=== PATIENT | female | born 1930 | race Caucasian/White ===

== ENCOUNTER 2020-01-24 15:23 | Emergency (ER) | payer MEDICARE, BC ==
--- NOTE | 2020-01-24 16:11 | EDM.PDOC ---
ED HPI GENERAL MEDICAL PROBLEM - General Chief Complaint: General Stated Complaint: MEDICAL VIA TRI Time Seen by Provider: 01/24/20 15:50 Source of Information: Reports: Patient, EMS, Old Records, RN History Limitations: Reports: No Limitations - History of Present Illness INITIAL COMMENTS - FREE TEXT/NARRATIVE: 89 yo female here via EMS from her home with a couple day hx of difficulty with speech and some bilateral mild arm weakness. Reports mild L leg numbness. Has has these sx's in the past and they have improved with time. This time they are not improving so she called the clinic and tried to get an appt. She was told to call and ambulance which she did. She expected to be taken to Dr. Harp's office and when she arrived at the hospital thought he would be meeting her here. Her children were with her yesterday and noted her problems, but no one chose to do anything at the time. Has not missed any of her medications. Is not having any trouble with swallowing. Had a CTA of her head last year that showed many aneurysms and arterial stenoses. 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) - Related Data Allergies Allergy/AdvReac Type Severity Reaction Status Date / Time codeine Allergy Unknown Shortness Verified 02/25/18 13:27 of Breath adenosine [From Adenocard] Allergy Shortness Verified 02/25/18 13:27 of Breath Home Meds: Home Meds Albuterol [Proair HFA] 2 puff INH QID 01/21/16 [History] Aspirin [Ecotrin EC] 81 mg PO DAILY 01/21/16 [History] Fluticasone/Salmeterol [Advair Diskus 500-50] 1 puff INH BID 01/21/16 [History] Lactobacillus Acidophilus [Acidophilus Lactobacillus] 1 tab PO DAILY 02/12/16 [ History] Magnesium Oxide 500 mg PO DAILY 02/12/16 [History] Metoprolol Tartrate [Lopressor] 25 mg PO BID 02/12/16 [History] Clopidogrel Bisulfate [Clopidogrel] 75 mg PO DAILY 01/24/20 [History] Naproxen 500 mg PO BID 01/24/20 [History] Potassium Chloride 10 meq PO BID 01/24/20 [History] Triamterene/Hydrochlorothiazid [Triamterene-HCTZ 37.5-25 MG] 1 tab PO DAILY [History] atorvaSTATin [Lipitor] 40 mg PO DAILY 01/24/20 [History] Past Medical History HEENT History: Reports: Impaired Vision Cardiovascular History: Reports: Hypertension Respiratory History: Reports: Bronchitis, Recurrent, COPD Gastrointestinal History: Reports: Chronic Constipation 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: Musculoskeletal History: Reports: Arthritis, Back Pain, Chronic, Osteoporosis Hematologic History: Reports: Other (See Below) Other Hematologic History: abnormal white count - Infectious Disease History Infectious Disease History: Reports: Chicken Pox, Measles, Mumps - Past Surgical History Cardiovascular Surgical History: Reports: None Musculoskeletal Surgical History: Reports: Other (See Below) Social & Family History - Tobacco Use Smoking Status *Q: Never Smoker - Living Situation & Occupation Living situation: Reports: Alone ED ROS GENERAL - Review of Systems Review Of Systems: See Below Constitutional: Reports: No Symptoms HEENT: Reports: Hearing Loss (chronic) Respiratory: Reports: No Symptoms Cardiovascular: Reports: No Symptoms GI/Abdominal: Reports: No Symptoms : Reports: No Symptoms Musculoskeletal: Reports: No Symptoms Skin: Reports: No Symptoms Neurological: Reports: Trouble Speaking, Weakness (mild bilateral arm weakness) , Change in Speech ED EXAM, GENERAL - Physical Exam Exam: See Below Exam Limited By: No Limitations General Appearance: Alert, WD/WN, No Apparent Distress Eye Exam: Bilateral Eye: Other (not able to look up) Ears: Hearing Loss, Other (bilateral hearing aids) Ear Exam: Bilateral Ear: Auricle Normal Nose: Normal Inspection, No Blood Throat/Mouth: Normal Inspection, Normal Oropharynx, Normal Voice, No Airway Compromise Head: Atraumatic, Normocephalic Neck: Normal Inspection, Supple, Non-Tender Respiratory/Chest: No Respiratory Distress, Lungs Clear, Normal Breath Sounds, No Accessory Muscle Use Cardiovascular: Regular Rate, Rhythm, No Edema GI/Abdominal: Normal Bowel Sounds, Soft, Non-Tender, No Distention Back Exam: Normal Inspection. No: CVA Tenderness (R), CVA Tenderness (L) Extremities: Normal Inspection, Normal Range of Motion, Non-Tender, No Pedal Edema Neurological: Alert, Oriented, No Motor/Sensory Deficits, Other (seems to not be able to look up. Has reduced visual traore in all directions. ). No: Slow to Respond, Sensory/Motor Deficit Psychiatric: Normal Affect, Normal Mood Skin Exam: Warm, Dry, Intact, Normal Color, No Rash Course - Vital Signs Text/Narrative:: Discussed options for management with patient. She is not interested in speech therapy. Case discussed with Dr. Figueredo, feels not a candidate for aggressive tx with the duration of her sx's. Patient prefers to go home and follow up with her primary. Last Recorded V/S: Last Vital Signs Temp 35.9 C L 01/24/20 16:38 Pulse 80 01/24/20 16:38 Resp 16 01/24/20 16:38 BP 206/79 H 01/24/20 16:46 Pulse Ox 97 01/24/20 16:38 - Orders/Labs/Meds Orders: Active Orders 24 hr Category Date Time Status CULTURE BLOOD [BC] Stat Lab 01/24/20 17:11 Received Saline Lock Insert [OM.PC] Routine Oth 01/24/20 16:41 Ordered Labs: Laboratory Tests 01/24/20 01/24/20 01/24/20 Range/Units 16:20 16:22 16:22 WBC 24.2 H Cancelled (4.5-11.0) K/uL RBC 3.84 Cancelled (3.30-5.50) M/uL Hgb 12.7 Cancelled (12.0-15.0) g/dL Hct 39.0 Cancelled (36.0-48.0) % MCV 102 H Cancelled (80-98) fL MCH 33 H Cancelled (27-31) pg MCHC 33 Cancelled (32-36) % Plt Count 193 Cancelled (150-400) K/uL Neut % (Auto) 22 L (36-66) % Lymph % (Auto) 72 H (24-44) % [place] % (Auto) 4 (2-6) % Eos % (Auto) 1 L (2-4) % Baso % (Auto) 0 (0-1) % Sodium 143 (140-148) mmol/L Potassium 4.1 (3.6-5.2) mmol/L Chloride 106 (100-108) mmol/L Carbon Dioxide 31 (21-32) mmol/L Anion Gap 6.2 (5.0-14.0) mmol/L BUN 33 H D (7-18) mg/dL Creatinine 1.2 H (0.6-1.0) mg/dL Est Cr Clr Drug Dosing 25.52 mL/min Estimated GFR (MDRD) 42 L (>60) Glucose 122 H (74-106) mg/dL Calcium 9.1 (8.5-10.1) mg/dL Troponin I 0.027 (0.000-0.056) ng/mL Urine Color (YELLOW) Urine Appearance (CLEAR) Urine pH (5.0-8.0) Ur Specific [place] (1.008-1.030) Urine Protein (NEGATIVE) mg/dL Urine Glucose (UA) (NEGATIVE) mg/dL Urine Ketones (NEGATIVE) mg/dL Urine Occult Blood (NEGATIVE) Urine Nitrite (NEGATIVE) Urine Bilirubin (NEGATIVE) Urine Urobilinogen (0.2-1.0) EU/dL Ur Leukocyte Esterase (NEGATIVE) Urine RBC (0-5) Urine WBC (0-5) Ur Epithelial Cells Amorphous Sediment Urine Bacteria Urine Mucus 01/24/20 Range/Units 16:37 WBC (4.5-11.0) K/uL RBC (3.30-5.50) M/uL Hgb (12.0-15.0) g/dL Hct (36.0-48.0) % MCV (80-98) fL MCH (27-31) pg MCHC (32-36) % Plt Count (150-400) K/uL Neut % (Auto) (36-66) % Lymph % (Auto) (24-44) % [place] % (Auto) (2-6) % Eos % (Auto) (2-4) % Baso % (Auto) (0-1) % Sodium (140-148) mmol/L Potassium (3.6-5.2) mmol/L Chloride (100-108) mmol/L Carbon Dioxide (21-32) mmol/L Anion Gap (5.0-14.0) mmol/L BUN (7-18) mg/dL Creatinine (0.6-1.0) mg/dL Est Cr Clr Drug Dosing mL/min Estimated GFR (MDRD) (>60) Glucose (74-106) mg/dL Calcium (8.5-10.1) mg/dL Troponin I (0.000-0.056) ng/mL Urine Color Yellow (YELLOW) Urine Appearance Clear (CLEAR) Urine pH 7.5 (5.0-8.0) Ur Specific [place] 1.025 (1.008-1.030) Urine Protein Negative (NEGATIVE) mg/dL Urine Glucose (UA) Negative (NEGATIVE) mg/dL Urine Ketones Negative (NEGATIVE) mg/dL Urine Occult Blood Negative (NEGATIVE) Urine Nitrite Negative (NEGATIVE) Urine Bilirubin Negative (NEGATIVE) Urine Urobilinogen 0.2 (0.2-1.0) EU/dL Ur Leukocyte Esterase Negative (NEGATIVE) Urine RBC 0-5 (0-5) Urine WBC 0-5 (0-5) Ur Epithelial Cells Not seen Amorphous Sediment Not seen Urine Bacteria Rare Urine Mucus Not seen Meds: Medications Discontinued Medications Generic Name Dose Route Start Last Admin Trade Name Freq PRN Reason Stop Dose Admin Lactated Ringer's 1,000 mls @ 150 mls/hr 01/24/20 17:15 01/24/20 17:26 Ringers, Lactated IV 150 mls/hr ASDIRECTED SWAPNIL Administration Sodium Chloride 10 ml 01/24/20 16:41 01/24/20 17:37 Saline Flush FLUSH 10 ml ASDIRECTED PRN Administration Keep Vein Open - Radiology Interpretation Free Text/Narrative:: Head CT without contrast-IMPRESSION: 1. No radiographic evidence of acute intracranial abnormalities. 2. Mild cerebral atrophy. 3. Mild to moderate supratentorial white matter changes that are non-specific, but statistically most likely related to small vessel ischemic disease. CT Results Date: 01/24/20 CT Results Time: 17:15 Departure - Departure Time of Disposition: 19:20 Disposition: Home, Self-Care 01 Condition: Fair Clinical Impression: Dysarthria, CLL (chronic lymphocytic leukemia), Mild dehydration CVA (cerebral vascular accident) Qualifiers: CVA mechanism: unspecified Qualified Code(s): I63.9 - Cerebral infarction, unspecified HTN (hypertension) Qualifiers: Hypertension type: unspecified Qualified Code(s): I10 - Essential (primary) hypertension - Discharge Information *PRESCRIPTION DRUG MONITORING PROGRAM REVIEWED*: Not Applicable *COPY OF PRESCRIPTION DRUG MONITORING REPORT IN PATIENT RACHEL: Not Applicable Instructions: Hypertension, Adult, [id number], Rehabilitation After a Stroke , Adult Referrals: PCP,None [Primary Care Provider] - Forms: ED Department Discharge Additional Instructions: Continue your usual medications. F/U with Dr. Harp later this week. Return if worse. Keep all scheduled appointments. Sepsis Event Note - Focused Exam Date Exam was Performed: 01/25/20 Time Exam was Performed: 07:27 - My Orders Last 24 Hours: My Active Orders 01/24/20 16:41 Saline Lock Insert [OM.PC] Routine 01/24/20 17:11 CULTURE BLOOD [BC] Stat - Assessment/Plan Last 24 Hours: My Active Orders 01/24/20 16:41 Saline Lock Insert [OM.PC] Routine 01/24/20 17:11 CULTURE BLOOD [BC] Stat
[2020-01-24 16:16] VITALS: PULSE 80
[2020-01-24] MEDS ORDERED: Sodium Chloride 0.9% 10 ML Syringe FLUSH PRN (16:41)
[2020-01-24 16:47] VITALS: BP 206/79
--- NOTE | 2020-01-24 16:51 | CRLCT ---
INDICATION: Speech deficits TECHNIQUE: Noncontrast axial CT of the head is submitted. No comparisons. FINDINGS: Mild cerebral atrophy. The ventricles, sulci and gyri are of normal size, shape and contour for age and degree of atrophy. Midline structures are centrally located. No convincing evidence of suspicious intra- or extra-axial fluid collections. Mild to moderate patchy regions of decreased attenuation within the periventricular and subcortical white matter of both cerebral hemispheres. IMPRESSION: 1. No radiographic evidence of acute intracranial abnormalities. 2. Mild cerebral atrophy. 3. Mild to moderate supratentorial white matter changes that are non-specific, but statistically most likely related to small vessel ischemic disease. Dictated by Jonas Camacho MD @ 01/24/2020 4:50:30 PM Please note that all CT scans at this facility use dose modulation, iterative reconstruction, and/or weight-based dosing when appropriate to reduce radiation dose to as low as reasonably achievable. Dictated by: Jonas Camacho MD @ 01/24/2020 16:50:41 (Electronically Signed)
[2020-01-24] MEDS ORDERED: Lactated Ringers 1,000 ML IV SCH (17:15)
== END 2020-01-24 18:43 | disposition home or self-care (01) ==
LOC: JP.ED 15:23
DX: I63.9 Cerebral infarction, unspecified (principal); I10 Essential (primary) hypertension; E86.0 Dehydration; C91.10 Chronic lymphocytic leukemia of B-cell type not having achieved remission; J44.9 Chronic obstructive pulmonary disease, unspecified; M19.90 Unspecified osteoarthritis, unspecified site; Z79.82 Long term (current) use of aspirin; Z79.02 Long term (current) use of antithrombotics/antiplatelets; Z79.899 Other long term (current) drug therapy
CPT/HCPCS: 36415; 70450; 80048; 81001; 84484; 85025; 87040; 96360; 96361; 99285; J7120; 99283